=== PATIENT | female | born 1990 | race Caucasian/White ===

== ENCOUNTER 2022-09-12 10:44 | Day surgery (SDC) | payer OTHER ==
[~2022-09-12] VITALS: Ht 154.9 cm; Wt 65.0 kg
[~2022-09-12 10:44] MED LIST: CETI10CH PO; PRENTAB53 PO
[2022-09-12 11:22] LABS: HEMATOCRIT 39.5 % (36.0-47.0); HEMOGLOBIN 13.6 g/dl (12.0-15.5); MEAN CORPUSCULAR HEMOGLOBIN 31.4 pg (27.0-33.0); MEAN CORPUSCULAR HGB CONC 34.4 g/dl (32.0-36.5); MEAN CORPUSCULAR VOLUME 91.2 fl (80.0-96.0); PLATELET COUNT, AUTOMATED 261 10^3/uL (150-450); RED BLOOD COUNT 4.33 10^6/uL (4.00-5.40); WHITE BLOOD COUNT 6.8 10^3/uL (4.0-10.0)
[2022-09-12] MEDS ORDERED: DOXYCYCLINE HYCLATE 100MG TABLET PO ONE (12:05)
[2022-09-12] MEDS ORDERED: LIDOCAINE 1% SDV 30ML VIAL As Ordered ONE (12:13)
[2022-09-12] MEDS ORDERED: SILVER NITRATE APPLICATOR (1 = QTY 10) As Ordered ONE (12:13)
[2022-09-12] MEDS ORDERED: propofoL 200 MG/20 ML VIAL As Ordered ONE (12:45)
[2022-09-12] MEDS ORDERED: LIDOCAINE 2% 100MG/5ML SDV (FOR ANES.) As Ordered ONE (12:45)
[2022-09-12] MEDS ORDERED: fentaNYL 100 MCG/2 ML INJECTION As Ordered ONE (12:46)
[2022-09-12] MEDS ORDERED: MIDAZOLAM INJ 2MG/2ML VIAL As Ordered ONE (12:46)
[2022-09-12] MEDS ORDERED: BUPIVACAINE HCL 0.25% 30ML VIAL As Ordered ONE (13:05)
[2022-09-12] MEDS ORDERED: ACETAMINOPHEN 1000MG 100ML IV BAG As Ordered ONE (13:05)
[2022-09-12] MEDS ORDERED: KETOROLAC 60MG 2ML VIAL As Ordered ONE (13:27)
[2022-09-12] MEDS ORDERED: PHENYLephrine 500MCG 5ML (100MCG/ML) SYRINGE As Ordered ONE (13:32)
[2022-09-12] MEDS ORDERED: oxyCODONE 5MG TAB PO PRN (13:55)
[2022-09-12] MEDS ORDERED: LR 1,000 ML IV SCH (13:55)
[2022-09-12] MEDS ORDERED: ONDANSETRON 4MG 2ML VIAL IV PRN (13:55)
[2022-09-12] MEDS ORDERED: fentaNYL 100 MCG/2 ML INJECTION IV PRN (13:55)
[2022-09-12] MEDS ORDERED: MORPHINE 2 MG/ML 1ML VIAL IV PRN (13:55)
[2022-09-12 14:43] VITALS: BP 128/71
== END 2022-09-12 14:48 | disposition home or self-care (01) ==
LOC: M SDC 10:44
PROVIDERS: ATTEND Obstetrics & Gynecology
DX: O02.1 Missed abortion (principal); Z79.899 Other long term (current) drug therapy
CPT/HCPCS: 36415; 59820; 85027; 86850; 86900; 86901; 88305; J0131; J1885; J2250; J2370; J3010; S0020

== ENCOUNTER 2023-06-28 09:17 | Inpatient (IN) | payer OTHER ==
[~2023-06-28] VITALS: Ht 154.9 cm; Wt 81.1 kg
[2023-06-28] VITALS (50 sets, daily range): BP systolic 93–142; BP diastolic 50–76
[2023-06-28] MEDS ORDERED: OMEP10CASR PO (09:44)
[2023-06-28] MEDS ORDERED: HOME MED LIST COMPLETE! XX SCH (09:45)
[2023-06-28] MEDS ORDERED: LACTATED RINGER'S 1000 ML IV STA (09:48)
[2023-06-28] MEDS ORDERED: METHYLERGONOVINE MALEATE 0.2MG/ML 1ML VIAL IM PRN (09:50)
[2023-06-28] MEDS ORDERED: OXYTOCIN INJ 10UNITS/ML 1ML VIAL IV PRN (09:50)
[2023-06-28] MEDS ORDERED: LR 1,000 ML IV SCH (09:50)
[2023-06-28] MEDS ORDERED: miSOPROStol 50MCG 1/2 TABLET PO PRN (09:50)
[2023-06-28] MEDS ORDERED: TRANEXAMIC ACID INJection 1,000 MG in NS 100 ML IV PRN (09:50)
[2023-06-28] MEDS ORDERED: LIDOCAINE 1% MDV 20ML VIAL INFIL PRN (09:50)
[2023-06-28] MEDS ORDERED: OXYTOCIN DRIP 30 UNITS in IV 1 EA IV SCH (09:50)
[2023-06-28] MEDS ORDERED: CARBOPROST TROMETHAMINE 250 MCG/ML AMP IM PRN (09:50)
[2023-06-28] MEDS ORDERED: OXYTOCIN INJ 10UNITS/ML 1ML VIAL IM PRN (09:50)
[2023-06-28] MEDS ORDERED: OXYTOCIN DRIP 30 UNITS in IV 1 EA IV PRN ×6 (09:50)
[2023-06-28 10:52] LABS: HEMATOCRIT 36.3 % (36.0-47.0); HEMOGLOBIN 12.7 g/dl (12.0-15.5); MEAN CORPUSCULAR HEMOGLOBIN 33.3 pg (27.0-33.0); MEAN CORPUSCULAR VOLUME 95.3 fl (80.0-96.0); PLATELET COUNT, AUTOMATED 181 10^3/uL (150-450); RED BLOOD COUNT 3.81 10^6/uL (4.00-5.40); WHITE BLOOD COUNT 8.4 10^3/uL (4.0-10.0)
[2023-06-28] MEDS: LR 1,000 ML IV SCH ×2 (11:46→22:45)
[2023-06-28] MEDS ORDERED: PEN G POT 3,000,000 UNIT/50 ML 3,000,000 UNIT in IV 1 EA IV SCH (13:50)
[2023-06-28] MEDS ORDERED: LR 500 ML IV PRN (17:15)
[2023-06-28] MEDS ORDERED: diphenhydrAMINE 50MG/ML VIAL IV PRN (17:15)
[2023-06-28] MEDS ORDERED: NALOXONE INJ 0.4MG/1ML VIAL IV PRN (17:15)
[2023-06-28] MEDS ORDERED: FENTANYL/ROPIVACAINE/NACL BAG 100 ML EPIDURAL SCH (17:15)
[2023-06-28] MEDS ORDERED: EPIDURAL/PCA KEYS XX PRN (17:15)
[2023-06-28] MEDS ORDERED: ONDANSETRON 4MG 2ML VIAL IV PRN (17:15)
[2023-06-28] MEDS: FENTANYL/ROPIVACAINE/NACL BAG 100 ML EPIDURAL SCH (18:00)
[2023-06-28] MEDS: ePHEDrine SULFATE 25 MG/5 ML(5MG/ML) SYRINGE IVP PRN ×2 (18:19→18:22)
[2023-06-28] MEDS ORDERED: **PENDING PCN ENTRY XX SCH (21:00)
[2023-06-28] MEDS ORDERED: PENICILLIN G POTASSIUM 5 MU IV 5 MU in D5W MINI-BAG PLUS 100 ML IV STA (22:22)
[2023-06-28] MEDS: PENICILLIN G POTASSIUM 5 MU IV 5 MU in D5W MINI-BAG PLUS 100 ML IV STA ×3 (22:30→22:44)
[2023-06-29] VITALS (41 sets, daily range): BP systolic 87–133; BP diastolic 51–74; O2SAT 94
[2023-06-29] MEDS: LR 1,000 ML IV SCH ×2 (02:07→11:10)
[2023-06-29] MEDS: FENTANYL/ROPIVACAINE/NACL BAG 100 ML EPIDURAL SCH ×2 (02:17→10:02)
[2023-06-29] MEDS: PEN G POT 3,000,000 UNIT/50 ML 3,000,000 UNIT in IV 1 EA IV SCH ×4 (03:21→15:13)
[2023-06-29 15:57] LABS: CORD GAS ABE A -12.5; CORD GAS ABE V -8.2; CORD GAS HCO3 A 18.5 MMOL/L; CORD GAS HCO3 V 21.4 MMOL/L; CORD GAS O2 SAT A 63.9 %; CORD GAS O2 SAT V 61.9 %; CORD GAS PCO2 A 64.9 mmHg; CORD GAS PCO2 V 61.5 mmHg; CORD GAS PH A 7.073 UNITS; CORD GAS PH V 7.159 UNITS; CORD GAS PO2 A 35.6 mmHg; CORD GAS PO2 V 29.6 mmHg; CORD GAS SBC A 14.3 MMOL/L; CORD GAS SBC V 17.2 MMOL/L; CORD GAS TCO2 A 20.5 MMOL/L; CORD GAS TCO2 V 23.3 MMOL/L
[2023-06-29] MEDS ORDERED: METOCLOPRAMIDE INJ 10MG/2ML VIAL IV PRN (16:10)
[2023-06-29] MEDS ORDERED: METHYLERGONOVINE MALEATE 0.2MG/ML 1ML VIAL IM PRN (16:10)
[2023-06-29] MEDS ORDERED: ACETAMINOPHEN 500 MG TAB PO PRN (16:10)
[2023-06-29] MEDS ORDERED: DIBUCAINE 1% OINTMENT 30GM TOP PRN (16:10)
[2023-06-29] MEDS ORDERED: IBUPROFEN 600MG TAB PO PRN (16:10)
[2023-06-29] MEDS ORDERED: LR 1,000 ML IV SCH (16:10)
[2023-06-29] MEDS ORDERED: ONDANSETRON 4MG 2ML VIAL IV PRN (16:10)
[2023-06-29] MEDS ORDERED: OXYTOCIN DRIP 30 UNITS in IV 1 EA IV SCH (16:10)
[2023-06-29] MEDS ORDERED: RHOGAM 300MCG (1500IU) INJ IM SCH (16:10)
[2023-06-29] MEDS: IBUPROFEN 800 MG TAB PO PRN (19:37)
[2023-06-29] MEDS: ACETAMINOPHEN TAB 650MG DOSE (2X325MG) PO PRN (21:47)
[2023-06-30] MEDS: DOCUSATE SODIUM 100MG CAPSULE PO PRN (05:56)
[2023-06-30 06:00] VITALS: BP 106/58
[2023-06-30] MEDS: PRENATAL VITAMINS CHEWABLE TABLET PO SCH ×2 (07:16→08:05)
[2023-06-30] MEDS: OMEPRAZOLE 20MG CAP PO SCH (08:36)
[2023-06-30] MEDS ORDERED: CETIRIZINE (ZyrTEC) 5 MG/5 ML UDC DYE FREE PO SCH (09:00)
[2023-06-30 18:00] VITALS: BP 108/64; O2SAT 97
[2023-06-30] MEDS: IBUPROFEN 800 MG TAB PO PRN (18:10)
[2023-07-01] MEDS: DOCUSATE SODIUM 100MG CAPSULE PO PRN (04:35)
[2023-07-01 05:54] VITALS: BP 101/58
[2023-07-01] MEDS: OMEPRAZOLE 20MG CAP PO SCH (08:15)
[2023-07-01] MEDS: PRENATAL VITAMINS CHEWABLE TABLET PO SCH ×2 (08:16→09:00)
[2023-07-01] MEDS ORDERED: CETIRIZINE (ZyrTEC) 10 MG TAB PO SCH (09:00)
[2023-07-01] MEDS ORDERED: MEASLES,MUMPS,RUBELLA VACCINE INJ (MMR-II) SC.IMMUN ONE (09:00)
[2023-07-01] MEDS ORDERED: INFLUENZA QUADRIVALENT PF VACCINE 0.5ML SYRINGE IM.IMMUN ONE (09:00)
[2023-07-01] MEDS: IBUPROFEN 800 MG TAB PO PRN (11:54)
[2023-07-01] MEDS: ACETAMINOPHEN TAB 650MG DOSE (2X325MG) PO PRN (11:54)
== END 2023-07-01 12:00 | disposition home or self-care (01) | DRG 807 ==
LOC: M LDI 09:17 → M OBS 06-29 18:42
PROVIDERS: ADMIT Obstetrics & Gynecology; ATTEND Obstetrics & Gynecology
PROC: 3E033VJ Introduction of Other Hormone into Peripheral Vein, Percutaneous Approach (ICD-10-PCS; 2023-06-28)
PROC: 10E0XZZ Delivery of Products of Conception, External Approach (ICD-10-PCS; principal; 2023-06-29)
PROC: 10907ZC Drainage of Amniotic Fluid, Therapeutic from Products of Conception, Via Natural or Artificial Opening (ICD-10-PCS; 2023-06-29)
PROC: 0HQ9XZZ Repair Perineum Skin, External Approach (ICD-10-PCS; 2023-06-29)
DX: O34.219 Maternal care for unspecified type scar from previous cesarean delivery (principal); Z37.0 Single live birth; Z3A.40 40 weeks gestation of pregnancy; O40.3XX0 Polyhydramnios, third trimester, not applicable or unspecified; O99.824 Streptococcus B carrier state complicating childbirth; O76 Abnormality in fetal heart rate and rhythm complicating labor and delivery; O69.81X0 Labor and delivery complicated by cord around neck, without compression, not applicable or unspecified; O70.0 First degree perineal laceration during delivery